=== PATIENT | male | born 1985 | race Caucasian/White ===

== ENCOUNTER 2024-07-17 10:31 | Day surgery (SDC) | payer OTHER ==
[~2024-07-17] VITALS: Ht 172.7 cm; Wt 111.1 kg
[2024-07-17] MEDS ORDERED: LIDOCAINE 2% 1000 MG/50 ML VIAL INJ ONE (11:17)
[2024-07-17] MEDS ORDERED: fentaNYL citrate 0.05 MG/ML VIAL ONE ×2 (11:44→13:04)
[2024-07-17] MEDS: fentaNYL citrate 0.05 MG/ML VIAL IVP ONE (12:12)
[2024-07-17] MEDS ORDERED: MORPHINE SULFATE 4 MG/ML SYR IVP PRN (12:35)
[2024-07-17] MEDS ORDERED: MORPHINE SULFATE 4 MG/ML SYR ONE (12:37)
[2024-07-17] MEDS: MORPHINE SULFATE 4 MG/ML SYR IVP ONE ×2 (12:42→13:03)
[2024-07-17] MEDS ORDERED: MIDAZOLAM 5 MG/5 ML VIAL ONE (13:04)
[2024-07-17] MEDS ORDERED: MIDAZOLAM 2 MG/2 ML VIAL ONE (13:04)
[2024-07-17] MEDS ORDERED: ACETAMINOPHEN EXTRA STRENGTH 500 MG TAB PO ONE (13:50)
[2024-07-17] MEDS: ACETAMINOPHEN EXTRA STRENGTH 500 MG TAB ONE (14:05)
== END 2024-07-17 14:34 | disposition home or self-care (01) ==
LOC: MDS 10:31 → MMU 10:32 → MDS 14:34
PROVIDERS: ATTEND Internal Medicine Gastroenterology
DX: K75.81 Nonalcoholic steatohepatitis (NASH) (principal); E78.5 Hyperlipidemia, unspecified; E11.9 Type 2 diabetes mellitus without complications; E66.9 Obesity, unspecified; Z68.37 Body mass index [BMI] 37.0-37.9, adult; F17.210 Nicotine dependence, cigarettes, uncomplicated
CPT/HCPCS: 47000; 76942; 82948; J2001; J2250; J2270; J3010; Q0092